=== PATIENT | female | born 1995 ===

== ENCOUNTER 2017-11-06 01:30 | Emergency (ER) | payer SELFPAY ==
[2017-11-06 01:36] VITALS: RESP 18; TEMP 97.3
[2017-11-06] MEDS ORDERED: Lactated Ringer's 1,000 ML IV SCH (01:45)
--- NOTE | 2017-11-06 02:07 | ED PDOC ---
HPI: Psych/Substance Abuse Time Seen by Provider: 11/06/17 01:37 Chief Complaint (Nursing): Alcohol Ingestion Chief Complaint (Provider): ETOH ED Caveat: Intoxicated History Per: EMS Onset/Duration Of Symptoms: Unknown Current Symptoms Are (Timing): Still Present Modifying Factor(s): Alcohol Additional Complaint(s): 22 y/o female brought to the ED for evaluation of public intoxication. She denies any physical complaints. History is limited by intoxication. Past Medical History Vital Signs: Last Vital Signs Temp 97.3 F L 11/06/17 01:31 Pulse 80 11/06/17 01:31 Resp 18 11/06/17 01:31 BP 120/68 11/06/17 01:31 Pulse Ox 98 11/06/17 01:31 - Family History Family History: States: No Known Family Hx - Allergies Allergies/Adverse Reactions: Allergies Allergy/AdvReac Type Severity Reaction Status Date / Time No Known Allergies Allergy Verified 11/06/17 01:31 Review of Systems Review Of Systems: ROS cannot be obtained secondary to pt's inabilty to answer questions. Physical Exam - Reviewed Nursing Documentation Reviewed: Yes Vital Signs Reviewed: Yes - Physical Exam Appears: Negative for: Well (intoxicated) Head Exam: Positive for: ATRAUMATIC, NORMAL INSPECTION, NORMOCEPHALIC Skin: Positive for: Normal Color, Warm, DRY Eye Exam: Positive for: EOMI, Normal appearance, PERRL ENT: Positive for: Normal ENT Inspection Neck: Positive for: Normal, Painless ROM Cardiovascular/Chest: Positive for: Regular Rate, Rhythm Respiratory: Positive for: CNT, Normal Breath Sounds Gastrointestinal/Abdominal: Positive for: Normal Exam, Bowel Sounds, Soft Back: Positive for: Normal Inspection Extremity: Positive for: Normal ROM Neurologic/Psych: Positive for: Oriented, Other (intoxicated, speech is slurred) . Negative for: Alert (obtunded, but arousable ) - Laboratory Results Result Diagrams: 11/06/17 02:00 11/06/17 02:00 - ECG O2 Sat by Pulse Oximetry: 98 (RA) Pulse Ox Interpretation: Normal Medical Decision Making Medical Decision Making: Impression: 22 y/o female who is intoxicated. Plan: - IVF - Labs - Clinical sobriety At 6AM Patient reevaluated and is clinically sober with steady gait and fluent speech; stable upon discharge Scribe Attestation Documented by Jaylene Nicolas acting as a scribe for Deny Herring MD. Provider Attestation All medical record entries made by the Scribe were at my direction and personally dictated by me. I have reviewed the chart and agree that the record accurately reflects my personal performance of the history, physical exam, medical decision making, and the department course for this patient. I have also personally directed, reviewed, and agree with the discharge instructions and disposition. Disposition - Clinical Impression Clinical Impression: Alcohol abuse with intoxication - Disposition Disposition: Routine/Home Disposition Time: 06:00 Condition: STABLE Instructions: Alcohol Abuse and Alcoholism (DC) Forms: [facility] [employer] [facility] ([place])
[2017-11-06 02:31] LABS: BASO % 0.3 % (0.0-2.0); EOS % 0.2 % (0.0-4.0); HEMOGLOBIN 13.7 g/dL (12.0-16.0); LYMPH # 2.6 K/uL (1.0-4.3); LYMPH % 37.7 % (20.0-40.0); MEAN CORPUSCULAR HEMOGLOBIN 30.9 pg (27.0-31.0); MEAN CORPUSCULAR HGB CONC 33.6 g/dL (33.0-37.0); MEAN PLATELET VOLUME 8.4 fl (7.2-11.7); MONO # 0.4 K/uL (0.0-0.8); MONO % 6.3 % (0.0-10.0); NEUT # 3.9 K/uL (1.8-7.0); NEUT % 55.5 % (50.0-75.0); RBC 4.45 Mil/uL (3.80-5.20); RED CELL DISTRIBUTION WIDTH 13.2 % (11.5-14.5)
[2017-11-06 02:40] LABS: BLOOD UREA NITROGEN 12 mg/dl (7-17); CALCIUM 8.9 mg/dL (8.4-10.2); GFR AFRICAN-AMERICAN > 60; GFR NON-AFRICAN AMERICAN > 60
[2017-11-06 05:12] VITALS: BP 113/57; PULSE 97
[2017-11-06 06:06] VITALS: O2SAT 98
== END 2017-11-06 06:51 | disposition home or self-care (01) ==
LOC: H.ER 01:30
DX: F10.129 Alcohol abuse with intoxication, unspecified (principal)
CPT/HCPCS: 80048; 85025; 99282; G0480; J7120